=== PATIENT | male | born 1985 | race African-American/Black ===

== ENCOUNTER 2018-10-07 13:53 | Emergency (ER) | payer MEDICAID ==
[~2018-10-07] VITALS: Ht 203.2 cm; Wt 121.0 kg
[2018-10-07] MEDS ORDERED: ACETAMINOPHEN 325MG TABLET PO ONE (17:45)
[2018-10-07 18:06] VITALS: BP 127/87
== END 2018-10-07 18:09 | disposition home or self-care (01) ==
LOC: ER 13:53
DX: G43.909 Migraine, unspecified, not intractable, without status migrainosus (principal)
CPT/HCPCS: 99282